=== PATIENT | female | born 1970 | race Caucasian/White ===

== ENCOUNTER 2019-01-27 11:42 | Inpatient (IN) | payer OTHER ==
[~2019-01-27] VITALS: Ht 162.6 cm; Wt 73.0 kg
--- NOTE | ~2019-01-27 | CON ---
[address] [address] CONSULTATION Name: [facility] Room: [address] IN .R.#: [id number] Admission: 01/27/19 Attend Phys: Reva Mari MD Discharge: Date of : 66 Report #: [id number] THIS REPORT FOR: //name// CC: Reva Bedolla DATE OF SERVICE: 01/27/2019 HISTORY OF PRESENT ILLNESS: This is a 48-year-old female patient who was evaluated by me for speech difficulty, which actually started at 4:00 p.m. yesterday. It started spontaneously without any trauma. She did not come to the hospital at that time, but because she did not become better she came to the hospital today. The symptoms have not changed much. She never had this kind of symptoms before. She smokes and she used to drink alcohol in significant amounts, but she does not do it now. There is some question of facial droop in this patient. She has some numbness in the left arm, but that has been present for a long time and does not look like it is related to that. REVIEW OF SYSTEMS: Indicates she has a history of hypertension and her control of hypertension is not clear. She is otherwise healthy and complained of some numbness in the left arm, which is old. She denies any cardiac, respiratory, GI, , musculoskeletal, constitutional, dermatological, hematological, psychiatric, throat, allergic symptom associated with present symptomatology. PAST MEDICAL HISTORY: Negative for any stroke. She denies any visual or ENT problems. FAMILY HISTORY: Negative for early age stroke. SOCIAL HISTORY: She used to drink alcohol in significant amount, but does not do it anymore. PHYSICAL EXAMINATION: The patient's examination indicate she is alert. She is responsive. She can follow simple commands. Her speech is significantly slurred. According to the daughter and the boyfriend, it is new. Cranial nerve examination, she moves both sides of the face. It is tough to tell if she has asymmetry and if it is really on the left side. However, strength, sensation, reflexes and tone is symmetrical. There is no meningeal sign. There is no carotid bruit. No cerebellar sign. I could not look at the patient's fundus. Cardiac examination appear unremarkable. No respiratory difficulty or rhonchi was noticed. Pulses are somewhat difficult to feel, but no edema, cyanosis or jaundice was noticed. Blood pressure is 150/95, respiration is 16 and pulse is 64. She has no thyroid mass. LABORATORY DATA: White count is 8.2. Sodium is 142. CT scan of the head and CT angio was reviewed and that does not show any definite abnormality, [place] [address] CONSULTATION Name: CHAPARRITATACOS Handy Room: [address] IN [facility]#: [id number] Admission: 01/27/19 Attend Phys: Reva Mari MD Discharge: Date of : 66 Report #: [id number] explain the patient's symptoms. IMPRESSION: This patient's clinical presentation is suggestive of a lacunar cerebrovascular accident. We will see what the workup shows. Apparently, there is a family history of stroke at early ages. Other differential will be considered only if stroke can be excluded. RECOMMENDATIONS: This patient appeared to have a stroke. We will work that one up further and if that confirmed the stroke, we will confine ourselves to the management of that. If not, then she will need further workup to look for stroke mimics. Thank you very much for this referral. By: 1330 [id number] Murray MD /mile
[~2019-01-27 11:42] MED LIST: AMBIEN 5 MG TABL5 M1 PO; CYCLOBENZAPRINE5 MG PO; NORCO 5-325 TA1 EACH PO; SEROQUEL 25 MG25 M1 PO; SYNTHROID150 MCG PO; XANAX 0.5 MG0.5 MG PO
[2019-01-27 11:45] VITALS: BP 168/91
[2019-01-27] MEDS ORDERED: TOPROL XL25 MG PO (11:52)
[2019-01-27 12:08] LABS: ABSOLUTE EOSINOPHILS 0.2 thou/uL (0.0-0.7); ABSOLUTE LYMPHOCYTES 2.1 thou/uL (0.8-5.3); ABSOLUTE MONOCYTES 0.6 thou/uL (0.0-1.2); ABSOLUTE NEUTROPHILS 5.3 thou/uL (1.6-8.1); BASOPHILS 0.3 %; EOSINOPHILS 1.9 %; HEMOGLOBIN 15.2 gm/dL (12.0-15.0); LYMPHOCYTES 25.7 %; MCH 33.9 pg (26.0-34.0); MCHC 33.7 g/dL (28.0-37.0); MCV 100.6 fL (80.0-100.0); MONOCYTES 7.6 %; NUCLEATED RBCS 0 /100WBC; PLATELET COUNT* 260 thou/uL (150-400); POLYS 64.5 %; RBC 4.48 mil/uL (4.20-5.00); WBC 8.2 thou/uL (4.0-11.0)
[2019-01-27 12:14] LABS: POC CA IONIZED 4.4 mg/dL (4.5-5.3); POC CREATININE 0.9 mg/dL (0.6-1.3); POC POTASSIUM 3.7 mmol/L (3.5-4.9)
[2019-01-27 12:17] LABS: INR 0.9; PROTIME 9.5 Seconds (9.20-11.50)
[2019-01-27 12:24] LABS: ALBUMIN 3.6 g/dL (3.4-5.0); ALKALINE PHOSPHATASE 88 U/L (46-116); ANION GAP 8 mmol/L (7-16); BUN 12 mg/dL (7-18); CALCIUM 8.8 mg/dL (8.5-10.1); CHLORIDE 105 mmol/L (98-107); CO2 32 mmol/L (21-32); GLUCOSE 89 mg/dL (70-99); POTASSIUM 3.8 mmol/L (3.5-5.1); SGOT 22 U/L (15-37); SGPT 44 U/L (30-65); SODIUM 145 mmol/L (136-145); TOTAL BILIRUBIN 0.3 mg/dL (<0.1-1.0); TROPONIN-I LEVEL <0.06 ng/mL (<0.06)
[2019-01-27 14:47] LABS: CHOLESTEROL 193 mg/dL (<200); HDL CHOLESTEROL 71 mg/dL (>40); LDL CHOLESTEROL 95 mg/dL (<100); TC:HDL 2.7 Ratio (Not establshd); TRIGLYCERIDE 135 mg/dL (<150); VLDL 27 mg/dL (<40)
[2019-01-27 14:48] LABS: SERUM ASSESSMENT Clear
[2019-01-27 15:00] VITALS: BP 145/95
[2019-01-27 15:30] VITALS: BP 140/95
--- NOTE | 2019-01-27 15:48 | EKG ---
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1970 Requested By: Vinay Raines Order Number: [id number] MD: Corey Mejias Measurements Intervals [place] Rate: 67 P: 22 AL: 117 QRS: -27 QRSD: 85 T: 23 QT: 415 QTc: 438 Interpretive Statements Sinus rhythm Borderline short AL interval Probable left atrial enlargement Inferior infarct, old Compared to ECG 03/25/2017 07:17:04 ST (T wave) deviation no longer present Electronically Signed On 01-27-2019 15:48:23 CDT by Corey Mejias [email or web address] <ELECTRONICALLY SIGNED> By: Corey Mejias MD, FAC 01/27/19 1548 1150 1150 Corey Mejias MD, [facility] /EPI
--- NOTE | 2019-01-27 16:44 | 2DMMODE ---
[place] [address] 2 D/M-MODE ECHOCARDIOGRAM Name: TACOS CHEATHAM Room: [address] IN [facility]#: [id number] Admission: 01/27/19 Attend Phys: Reva Mari, Discharge: Date of : 66 Date of Service: 01/27/19 1643 Report #: [id number] THIS REPORT FOR: //name// APPROVED REPORT Study performed: 01/27/2019 16:06:24 EXAM: Comprehensive 2D, Doppler, and color-flow Echocardiogram Patient Location: In-Patient Room #: [facility] Status: routine BSA: 1.79 HR: 60 bpm BP: 150/95 mmHg Rhythm: NSR Other Information Study Quality: Good Indications CVA/TIA Echo Enhancing Agent Indication: Rule out Shunt Agent(s) / Amount(s) Used: Agitated Saline 10 cc 2D Dimensions IVSd: 11.07 (7-11mm) LVOT Diam: 19.86 (18-24mm) LVDd: 40.14 mm PWd: 9.59 (7-11mm) Ascending Ao: 34.85 (22-36mm) LVDs: 23.19 (25-40mm) Aortic Root: 27.25 mm Volumes Left Atrial Volume (Systole) LA ESV Index: 19.70 mL/m2 Aortic Valve AoV Peak John.: 1.41 m/s AO Peak Gr.: 7.97 mmHg LVOT Max P.04 mmHg AO Mean Gr.: 4.15 mmHg LVOT Mean P.57 mmHg LVOT Max V: 1.42 m/s AO V2 VTI: 29.91 cm LVOT Mean V: 0.85 m/s JOSE MANUEL (VTI): 3.13 cm2 LVOT V1 VTI: 30.23 [place] [address] 2 D/M-MODE ECHOCARDIOGRAM Name: TACOS CHEATHAM Handy Room: [address] IN [facility]#: [id number] Admission: 01/27/19 Attend Phys: Reva Mari, Discharge: Date of : 66 Date of Service: 01/27/19 1643 Report #: [id number] Mitral Valve E/A Ratio: 1.24 MV Decel. Time: 213.41 ms MV E Max John.: 0.74 m/s MV PHT: 61.89 ms MVA (PHT): 3.55 cm2 TDI E/Lateral E': 6.17 E/Medial E': 6.73 Medial E' John.: 0.11 m/s Lateral E' Jonh.: 0.12 m/s Pulmonary Valve PV Peak John.: 0.77 m/s PV Peak Gr.: 2.37 mmHg Tricuspid Valve RAP Estimate: 5.00 mmHg TR Peak Gr.: 20.45 mmHg RVSP: 25.00 mmHg PA Pressure: 25.00 mmHg Left Ventricle The left ventricle is normal size. There is normal LV segmental wall motion. There is normal left ventricular wall thickness. Left ventricular systolic function is normal. LVEF is 60-65%. The left ventricular diastolic function is normal. Right Ventricle The right ventricle is normal size. The right ventricular systolic function is normal. Atria The left atrium size is normal. Interatrial septum is intact without evidence of ASD or PFO. The right atrium size is normal. Aortic Valve The aortic valve is normal in structure. No aortic regurgitation is present. There is no aortic valvular stenosis. Mitral Valve The mitral valve is normal in structure. Trace mitral regurgitation. No evidence of mitral valve stenosis. Tricuspid Valve The tricuspid valve is normal in structure. Mild tricuspid regurgitation[place] [address] 2 D/M-MODE ECHOCARDIOGRAM Name: TACOS CHEATHAM Room: [address] IN ..#: [id number] Admission: 01/27/19 Attend Phys: Reva Mari, Discharge: Date of : 66 Date of Service: 01/27/19 1643 Report #: [id number] Pulmonic Valve The pulmonary valve is normal in structure. There is no pulmonic valvular regurgitation. Great Vessels The aortic root is normal in size. IVC is normal in size and collapses >50% with inspiration. Pericardium There is no pericardial effusion. <Conclusion> The left ventricle is normal size. There is normal left ventricular wall thickness. Left ventricular systolic function is normal. LVEF is 60-65%. The left ventricular diastolic function is normal. Interatrial septum is intact without evidence of ASD or PFO. Trace mitral regurgitation. Mild tricuspid regurgitation. No pulmonary hypertension. IVC is normal in size and collapses >50% with inspiration. <ELECTRONICALLY SIGNED> By: Baldomero Ocasio MD, FACC 01/27/19 1643 164 164 Baldomero Ocasio MD, FACC /INF
[2019-01-27 16:58] VITALS: BP 120/81
[2019-01-27 19:40] VITALS: BP 140/91
[2019-01-28] VITALS: BP 118/71
[2019-01-28 02:08] LABS: GLYCOHEMOGLOBIN (HGB A1C) 5.5 % (4.8-5.6)
[2019-01-28 04:00] VITALS: BP 134/77
[2019-01-28 05:21] LABS: HEMATOCRIT 44.9 % (37.0-47.0); HEMOGLOBIN 15.3 gm/dL (12.0-15.0); MCH 34.4 pg (26.0-34.0); MCHC 34.1 g/dL (28.0-37.0); MCV 100.9 fL (80.0-100.0); MPV 8.1 fl. (7.2-11.1); RBC 4.45 mil/uL (4.20-5.00); RDW-CV 13.3 % (10.5-14.5); WBC 4.9 thou/uL (4.0-11.0)
[2019-01-28 05:44] LABS: ALBUMIN 3.2 g/dL (3.4-5.0); CALCIUM 8.9 mg/dL (8.5-10.1); CREATININE 0.9 mg/dL (0.6-1.3); MAGNESIUM 1.8 mg/dL (1.8-2.4); POTASSIUM 4.6 mmol/L (3.5-5.1); TOTAL BILIRUBIN 0.4 mg/dL (<0.1-1.0); TOTAL PROTEIN 6.5 g/dL (6.4-8.2)
[2019-01-28 08:00] VITALS: BP 123/75
[2019-01-28] MEDS ORDERED: SEROQUEL 100 M100 M1 PO (13:08)
[2019-01-28] MEDS ORDERED: LIPITOR 20 MG T20 M1 PO (13:08)
[2019-01-28] MEDS ORDERED: ASPIR 8181 MG PO (13:08)
[2019-01-28 13:45] VITALS: BP 123/75
[2019-01-28 13:59] VITALS: BP 123/75
== END 2019-01-28 14:50 | disposition home health service (06) | DRG 66 ==
LOC: M.ERS 11:42 → M.TBA-ER 12:42 → M.2W 15:10
PROVIDERS: Emergency Medicine Emergency Medical Services; ADMIT Internal Medicine
DX: I63.9 Cerebral infarction, unspecified (principal); F41.9 Anxiety disorder, unspecified; I10 Essential (primary) hypertension; F17.210 Nicotine dependence, cigarettes, uncomplicated; E03.9 Hypothyroidism, unspecified; Z82.3 Family history of stroke; Z83.49 Family history of other endocrine, nutritional and metabolic diseases; Z82.49 Family history of ischemic heart disease and other diseases of the circulatory system; Z79.82 Long term (current) use of aspirin; Z79.899 Other long term (current) drug therapy

== ENCOUNTER 2020-02-03 11:43 | Inpatient (IN) | payer OTHER ==
[~2020-02-03] VITALS: Ht 162.6 cm; Wt 70.3 kg
--- NOTE | ~2020-02-03 | CON ---
[address] [address] CONSULTATION Name: CHAPARRITATACOS BURGOS Room: [address] IN .R.#: [id number] Admission: 02/03/20 Attend Phys: Neelima Hamilton Discharge: Date of : 66 Report #: [id number] THIS REPORT FOR: //name// cc: Kristen Bedolla Tammy RNP ~ THIS REPORT FOR: //name// CC: Neelima Perez DATE OF SERVICE: 02/03/2020 HISTORY OF PRESENT ILLNESS: This is a 49-year-old female patient who is known to me from the prior admission. 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 Since then, she has had multiple issues. She has had multiple psychiatric issues. She follows up with a psychiatrist and a psychologist. She lost her job. She is extremely stressed out. She was admitted here with weakness on the left side. She also has some back issues. We had recommended an MRI as an outpatient. She has been not able to get it mainly because she does not have insurance anymore. REVIEW OF SYSTEMS: Positive for smoking. Unfortunately, she continues to smoke. She also has family history of stroke and she was on the estrogen the last time. We thought that was the contributing factor to her stroke that time. When she came last time, her symptoms were speech difficulty, so that will correlate with the left-sided stroke that time. She indicated she has been taking a small dose of aspirin, which looks like 81 mg. She does have a history of anxiety that was relevant 14-point review of systems. PAST MEDICAL HISTORY: Positive for stroke. She also has a history of hypertension in the past and even here, her blood pressure is high. FAMILY HISTORY: Positive for stroke. SOCIAL HISTORY: She continued to smoke. PHYSICAL EXAMINATION: Indicate she is alert. She is responsive. She can follow simple commands. Her speech looks intact. Cranial nerve examination, 2-12 does not appear to be showing any definite abnormality. She does appear to be weak on the left side, especially in the left lower extremity, but she is able to move and she is able to move against gravity and resistance. She said the sensation is there, but when I tried to do the position sense, she does not cooperate much. Cardiac examinations appear unremarkable. DIAGNOSTIC DATA: She had workup in the past and she did an echocardiogram. She does not remember if she did a monitor or not. She has no [place] [address] CONSULTATION Name: TACOS CHEATHAM Room: [address] IN [facility].#: [id number] Admission: 02/03/20 Attend Phys: Neelima Hamilton Discharge: Date of : 66 Report #: [id number] had a repeat MRI. They did not compare with the last MRI. It does have some ischemic changes. I wanted them to compare to see if there is any change and we have put a request for that, but it does not look like diffusion-weighted images has any stroke. Her vasculature continued to be clean. IMPRESSION: There is no cause which has been demonstrated which can explain her left leg weakness. Her stroke was on the left side the last time and that will not correlate with her symptoms. There is no new stroke, which can explain her symptoms. We need to workup her spine and I did order that workup. I have asked the radiologist to compare with the last MRI to see if the chronic changes are about the same or if they are different. She has a lot of psychiatric problems and that may be contributing to her symptoms. She is already seeing a psychiatrist and you might consider a psychiatric consult here. Dr. Eden is on-call from tomorrow and she will be following the patient with you from tomorrow morning. Further workup will depend upon what the MRI shows and what the radiologist thinks about MRI to see if there is any difference or it is about the change. I saw the patient in the ER and saw the patient here and reviewed her records. More than 50 minutes of time was spent taking care of this patient today and majority of time was spent counseling and coordinating. By: 1758 [id number] Marte MD /mile
[~2020-02-03 11:43] MED LIST changes: +ASPIR 8181 MG PO; +LIPITOR 20 MG T20 M1 PO; +SEROQUEL 100 M100 M1 PO; +TOPROL XL25 MG PO
[2020-02-03 11:49] VITALS: BP 159/102
[2020-02-03] MEDS ORDERED: CARVEDILOL25 MG PO (12:00)
[2020-02-03] MEDS ORDERED: HYDROCHLOROTHIA25 M2 PO (12:01)
[2020-02-03] MEDS ORDERED: LITE COAT ASPI325 MG PO (12:01)
[2020-02-03] MEDS ORDERED: QUETIAPINE FUM100 MG PO (12:02)
[2020-02-03] MEDS ORDERED: LAMICTAL XR200 MG PO (12:02)
--- NOTE | 2020-02-03 12:02 | NUR ---
PT VAGUE ON WHEN SYMPTOMS STARTED. SHE STATES INITIALLY THAT THEY STARTED WHEN SHE ENTERED THE HOSPITAL BUT THEN STATES SHE NOTICED THE INCREASED WEAKNESS YESTERDAY
[2020-02-03 12:29] LABS: ABSOLUTE BASOPHILS 0.1 thou/uL (0.0-0.2); ABSOLUTE EOSINOPHILS 0.2 thou/uL (0.0-0.7); ABSOLUTE LYMPHOCYTES 2.1 thou/uL (0.8-5.3); ABSOLUTE MONOCYTES 0.5 thou/uL (0.0-1.2); BASOPHILS 1.8 %; EOSINOPHILS 2.5 %; HEMATOCRIT 46.9 % (37.0-47.0); HEMOGLOBIN 16.2 gm/dL (12.0-15.0); LYMPHOCYTES 30.1 %; MCH 34.1 pg (26.0-34.0); MCHC 34.6 g/dL (28.0-37.0); MCV 98.5 fL (80.0-100.0); MONOCYTES 7.3 %; MPV 8.4 fl. (7.2-11.1); NUCLEATED RBCS 0 /100WBC; PLATELET COUNT* 264 thou/uL (150-400); POLYS 58.3 %; RBC 4.76 mil/uL (4.20-5.00); RDW-CV 13.7 % (10.5-14.5); WBC 6.9 thou/uL (4.0-11.0)
[2020-02-03 12:37] LABS: APTT 26.6 Seconds (25.0-31.3)
[2020-02-03 12:44] LABS: CALCIUM 8.8 mg/dL (8.5-10.1); CREATININE 0.9 mg/dL (0.6-1.3); POTASSIUM 4.1 mmol/L (3.5-5.1)
[2020-02-03 12:49] LABS: ALBUMIN 3.8 g/dL (3.4-5.0); TOTAL BILIRUBIN 0.4 mg/dL (<0.1-1.0); TOTAL PROTEIN 7.2 g/dL (6.4-8.2)
[2020-02-03 15:58] VITALS: BP 165/109
--- NOTE | 2020-02-03 16:30 | EKG ---
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
--- NOTE | 2020-02-03 16:40 | NUR ---
ADMIT TO 213 PATIENT TO VIA CART TELEPHONE REPORT GIVEN PRIOR TO ARRIVAL PATIENT ORIENTED TO AND CALL LIGHT PATIENT DENIES PAIN
[2020-02-03 16:45] VITALS: BP 155/82
[2020-02-03] MEDS ORDERED: VITAMIN D210 MCG PO (17:14)
[2020-02-03 20:16] VITALS: BP 139/81
[2020-02-04 00:12] VITALS: BP 126/75
[2020-02-04 04:34] VITALS: BP 141/82
[2020-02-04 04:53] LABS: ALBUMIN 3.4 g/dL (3.4-5.0); ALKALINE PHOSPHATASE 94 U/L (46-116); ANION GAP 11 mmol/L (7-16); BUN 30 mg/dL (7-18); CALCIUM 8.5 mg/dL (8.5-10.1); CHLORIDE 108 mmol/L (98-107); CO2 25 mmol/L (21-32); CREATININE 1.3 mg/dL (0.6-1.3); GLUCOSE 102 mg/dL (70-99); POTASSIUM 4.1 mmol/L (3.5-5.1); SGOT 18 U/L (15-37); SGPT 17 U/L (30-65); SODIUM 144 mmol/L (136-145); TOTAL BILIRUBIN 1.7 mg/dL (<0.1-1.0); TOTAL PROTEIN 6.9 g/dL (6.4-8.2)
[2020-02-04 04:59] LABS: URINE BILIRUBIN NEGATIVE (Negative); URINE BLOOD NEGATIVE (Negative); URINE CLARITY CLEAR; URINE COLOR YELLOW; URINE GLUCOSE-RANDOM NEGATIVE (Negative); URINE KETONES NEGATIVE (Negative); URINE LEUKOCYTES NEGATIVE (Negative); URINE NITRITE NEGATIVE (Negative); URINE PROTEIN NEGATIVE (Negative); URINE UROBILINOGEN 0.2 E.U./dl (0.2-1.0)
[2020-02-04 05:26] LABS: CHOLESTEROL 151 mg/dL (<200); HDL CHOLESTEROL 61 mg/dL (>40); LDL CHOLESTEROL 78 mg/dL (<100); TC:HDL 2.5 Ratio (Not establshd); TRIGLYCERIDE 60 mg/dL (<150); VLDL 12 mg/dL (<40)
[2020-02-04 05:31] LABS: SERUM ASSESSMENT CLEAR
--- NOTE | 2020-02-04 05:54 | NUR ---
ASSESSMENTS COMPLETED AT BEDSIDE, PLEASE REFER TO CHARTING FOR THE DETAILS. MEDICATIONS ADMINISTERED PER MAR. NO C/O PAIN OR DISCOMFORT NOTED BY PT. PT REFUSED MEDICATIONS LAST NIGHT AND THIS AM, SHE STATED SHE FELT THAT THEY WERE TOO MUCH TOGETHER. PT SHOWED IMPROVEMENT TO HR, GAIT, AND ALERTNESS. PLEASE REFER TO MAR FOR MEDICATIONS HELD. PT IS CURRENTLY RESTING IN BED WITH BED ALARM ON AND CALL LIGHT WITHIN REACH.
[2020-02-04 07:19] LABS: AMP/METHAMP POSITIVE (Negative); BARBITURATES Negative (Negative); BENZODIAZEPINES POSITIVE (Negative); COCAINE Negative (Negative); METHADONE Negative (Negative); OPIATES Negative (Negative); PCP Negative (Negative); THC POSITIVE (Negative)
[2020-02-04 12:12] VITALS: BP 131/95
--- NOTE | 2020-02-04 12:30 | NUR ---
Pt did not answer her phone in her room. Pt's dtr's phone number is non working. Contact, Mynor, phone went straight to and the mailbox was full. CM to continue to try and make contact. Per , neuro to see and Pt will either dc today or tomorrow. Following.
--- NOTE | 2020-02-04 18:48 | NUR ---
PT. AOX4, VSS, SINUS ARRYTHMIA ON MONITOR, STANDBY ASSIST FOR TOILETING, EMOTIONAL SUPPORT PROVIDED PT. SEEMED UPSET SEVERAL TIMES THROUGHOUT THE SHIFT. HOURLY ROUNDING PERFORMED AND CALL LIGHT AND PERSONAL BELONGINGS PLACED WITHIN REACH. ON ROOM AIR.
[2020-02-04 20:10] VITALS: BP 145/82
[2020-02-04 23:00] VITALS: BP 139/92
[2020-02-05 02:07] LABS: GLYCOHEMOGLOBIN (HGB A1C) 5.8 % (4.8-5.6)
[2020-02-05 03:30] VITALS: BP 143/62
--- NOTE | 2020-02-05 07:31 | NUR ---
PT CARE ASSUMED AT 1930. SAT MAINTAINED IN RA. ALERT AND ORIENTED X4. DENIES PAIN AND SOB. CALL LIGHT WITHIN REACH AND BED IN LOW POSITION. HOURLY ROUNDING DONE FOR PT SAFETY.
[2020-02-05 08:00] VITALS: BP 142/83
[2020-02-05] MEDS ORDERED: ZETIA10 MG PO (09:08)
[2020-02-05 09:33] VITALS: BP 142/83
--- NOTE | 2020-02-05 11:35 | NUR ---
ASSUMED CARE OF PT APPROX 0730. REASSESMENT COMPLETED CHARTED. MEDICATION GIVEN CHARTED. PT UP TO BTHROOM THIS AM WITH STAND BY ASSIST. SAFTEY PRECAUTIONS UTILIZED, HOURLY ROUNDED. PT DISCHARGE TEACHING COMPLETED WITH PT. PT REPRORTED CHANGE IN PHARMACY, PHARMACY UPDATED IN [facility]. PHYSICAN NOTIFIED, PRESCRIPTION CALLED IN TO NEW PHARMACY. PT HAD CONCERN ABOUT COST OF PRESCRIPTION, ENGLISH CHECKED WITH PHARMACY. PT INFORMED THE PRESCRIPTION WOULD BE $7, PT OKAY WITH COST.
--- NOTE | 2020-02-06 12:22 | TST ---
[place] [address] TREADMILL STRESS TEST Name: TACOS CHEATHAM Room: [address] IN .R.#: [id number] Admission: 02/03/20 Attend Phys: Neelima mendez Sa Discharge: 02/05/20 Date of : 66 Date of Service: 02/04/20 1658 Report #: [id number] THIS REPORT FOR: cc: Kristen Bedolla Tammy RNP Liston, Michael J. MD FAC ~ CC: Neelima Perez STANDARD JUNG PROTOCOL EXERCISE STRESS TEST INDICATION: Assess for chronotropic competence. DESCRIPTION OF PROCEDURE: After informed consent was obtained, the patient was brought to the cardiac stress room. The patient exercised per standard Jung protocol for a total of 3 minutes. Exercise was stopped due to fatigue and inability to continue walking. The baseline 12-lead EKG shows sinus rhythm without significant ST segment or T-wave abnormality. EKGs obtained during and post-exercise shows some slight T-wave inversion without ST segment changes. Recovery EKGs were unremarkable. The resting blood pressure was 130/89 mmHg with a resting pulse rate of 52 beats per minute. At peak exercise, the patient achieved a heart rate of 93 beats per minute with a blood pressure of 178/94 mmHg. In recovery, the blood pressure was 135/78 mmHg with a heart rate of 58 beats per minute. The patient had no significant symptoms. IMPRESSION: 1. Limited exercise tolerance. 2. The patient shows evidence of chronotropic competence with an increase of her heart rate to the upper 90s with minimal exertion. <ELECTRONICALLY SIGNED> By: Baldomero Ocasio MD, FACC 02/06/20 1222 1658 19 Baldomero Ocasio MD, FACC /nt
== END 2020-02-05 11:45 | disposition home or self-care (01) | DRG 312 ==
LOC: M.ERS 11:43 → M.2W 15:01 → M.TBA-ER 15:01 → M.2W 16:45
PROVIDERS: Emergency Medicine; ADMIT Family Medicine
DX: I95.1 Orthostatic hypotension (principal); I69.354 Hemiplegia and hemiparesis following cerebral infarction affecting left non-dominant side; F41.9 Anxiety disorder, unspecified; I10 Essential (primary) hypertension; E03.9 Hypothyroidism, unspecified; F12.90 Cannabis use, unspecified, uncomplicated; G47.00 Insomnia, unspecified; F17.210 Nicotine dependence, cigarettes, uncomplicated; F32.9 Major depressive disorder, single episode, unspecified; E78.5 Hyperlipidemia, unspecified; Z71.6 Tobacco abuse counseling; Z79.82 Long term (current) use of aspirin; Z79.899 Other long term (current) drug therapy

== ENCOUNTER 2020-03-31 06:27 | Emergency (ER) | payer OTHER ==
[~2020-03-31] VITALS: Ht 162.6 cm; Wt 65.8 kg
[~2020-03-31 06:27] MED LIST changes: +CARVEDILOL25 MG PO; +HYDROCHLOROTHIA25 M2 PO; +LAMICTAL XR200 MG PO; +LITE COAT ASPI325 MG PO; +QUETIAPINE FUM100 MG PO; +VITAMIN D210 MCG PO; +ZETIA10 MG PO
[2020-03-31 06:32] VITALS: BP 124/96
[2020-03-31] MEDS ORDERED: IBUPROFEN 600600 M1 PO (06:45)
[2020-03-31] MEDS ORDERED: HYDROCODON-ACE1 EAC7 PO (06:45)
== END 2020-03-31 07:02 | disposition home or self-care (01) ==
LOC: M.ERS 06:27
DX: K02.9 Dental caries, unspecified (principal); I10 Essential (primary) hypertension; E03.9 Hypothyroidism, unspecified; F41.9 Anxiety disorder, unspecified; F17.210 Nicotine dependence, cigarettes, uncomplicated; Z86.73 Personal history of transient ischemic attack (TIA), and cerebral infarction without residual deficits

== ENCOUNTER → 2021-05-15 | Outpatient (CLI) | payer OTHER, MEDICAID ==
[~2021-05-15] MED LIST changes: +HYDROCODON-ACE1 EAC7 PO; +IBUPROFEN 600600 M1 PO
== END ==
LOC: M.RAD 10:16
PROVIDERS: ATTEND Registered Nurse Diabetes Educator
DX: Z12.31 Encounter for screening mammogram for malignant neoplasm of breast (principal); N63.20 Unspecified lump in the left breast, unspecified quadrant; N64.89 Other specified disorders of breast

== ENCOUNTER → 2021-07-10 | Outpatient (CLI) | payer OTHER, MEDICAID | LOC: M.ULTRA 09:20 | PROVIDERS: ATTEND Registered Nurse Diabetes Educator | DX: E03.9 Hypothyroidism, unspecified (principal); R63.4 Abnormal weight loss ==